=== PATIENT | female | born 1945 | race Caucasian/White ===

== ENCOUNTER 2022-05-03 18:21 | Inpatient (IN) | payer OTHER, SELFPAY ==
[2022-05-02] VITALS (36 sets, daily range): BP systolic 105–199; BP diastolic 61–112; PULSE 61–75; RESP 12–22; TEMP 35.9–36.7; O2SAT 90–100; BMI 29.6; BMI 29.3
[2022-05-02] MEDS: ETHYL CHLORIDE 116 ML SPRAY 1 APPLIC TOPICAL (10:30)
[2022-05-02] MEDS: LACTATED RINGERS 1000 ML 1,000 ML 100 ML IV ×2 (10:30→12:46)
[2022-05-02] MEDS: ACETAMINOPHEN 500 MG TABLET 1000 MG PO ×3 (10:45→23:14)
[2022-05-02] MEDS: CELECOXIB 200 MG CAPSULE PO (10:45)
[2022-05-02] MEDS: OXYCODONE (CR) 10 MG TAB.ER.12H PO (10:45)
[2022-05-02] MEDS: fentaNYL 100 MCG/2 ML inj IVP (11:04)
[2022-05-02] MEDS: MIDAZOLAM HCL 1 MG/ML inj IVP (11:04)
--- NOTE | 2022-05-02 11:08 | P.NB_ITS ---
Nerve Block Nerve Block Time Seen by Provider: 11:00 Date Seen: 05/02/22 Type of block requested by surgeon for post-operative analgesia: interscalene Side: right Time out performed: Yes Verification of patient name: Yes Verification of date of : Yes Site marking: site marked Name of person performing procedure: Aniket Continuous monitoring Was continuous monitoring of O2 sat, B/P, electronic device monitor, recorded every 15 minutes?: Yes Procedure Checklist: sterile prep, needles and gloves Ultrasound guided. Images saved: Yes Medications given in 5ml increments after negative aspiration: Ropivicaine %: 0.5 mL: 20 Needle gauge: 22 Decadron (mg): 10 Precedex (mcg): 25 Patient tolerated procedure well: Yes
--- NOTE | 2022-05-02 11:11 | P.NB_ITS ---
Nerve Block Nerve Block Type of block requested by surgeon for post-operative analgesia: geniculars Time out performed: Yes Verification of patient name: Yes Verification of date of : Yes Site marking: site marked Name of person performing procedure: Aniket Continuous monitoring Was continuous monitoring of O2 sat, B/P, media monitor, recorded every 15 minutes?: Yes Procedure Checklist: sterile prep, needles and gloves Ultrasound guided. Images saved: Yes Medications given in 5ml increments after negative aspiration: Ropivicaine %: 0.5 mL: 9 Needle gauge: 25 Patient tolerated procedure well: Yes Additional comments: Needle noted adjacent to nerve
--- NOTE | 2022-05-02 11:22 | PM.ANBPRC ---
[facility] Medical History (Updated 05/01/22 @ 10:03 by Kaelyn Bush RN) Chronic neck pain Gastro-esophageal reflux disease without esophagitis History of colon polyps Hypertension Insomnia Other hyperlipidemia Recurrent cold sores Scoliosis Social History Smoking Status: Former smoker How often do you have a drink containing alcohol: monthly or less How many standard drinks containing alcohol do you have on a typical day: 1 or 2 How often do you have six or more drinks on one occasion: Never AUDIT-C Alcohol total score: 1 Caffeine: Yes (OFFEE 1/D) Meds Home Medications and Allergies Home Medications Medication Instructions Recorded Confirmed Type alendronate 70 mg tablet 70 mg PO QWEEK 04/25/22 05/02/22 History calcium carbonate 500 mg-vitamin 1 tab PO DAILY 04/25/22 05/02/22 History D3 3.125 mcg (125 unit) tablet famotidine 20 mg tablet 20 mg PO DAILY 04/25/22 05/02/22 History ibuprofen 200 mg tablet 400 mg PO Q4-6H PRN 04/25/22 05/02/22 History metoprolol succinate 25 mg 25 mg PO DAILY 04/25/22 05/02/22 History tablet,extended release 24 hr rosuvastatin 10 mg tablet 10 mg PO HS 04/25/22 05/02/22 History sennosides 8.6 mg-docusate sodium 1 tab-cap PO HS 04/25/22 05/02/22 History 50 mg tablet (Senna-S) tramadol 50 mg tablet 50 mg PO Q6H PRN 04/25/22 05/02/22 History trazodone 50 mg tablet 50 mg PO HS 04/25/22 05/02/22 History Allergies Allergy/AdvReac Type Severity Reaction Status Date / Time No Known Allergies Allergy Unverified 05/02/22 09:40 Results Vital Signs Vital Signs: Last Vital Signs Temp 97.9 F 05/02/22 10:22 Pulse 74 05/02/22 10:22 Resp 16 05/02/22 10:22 BP 151/95 H 05/02/22 10:22 Pulse Ox 99 05/02/22 10:22 Weight: 71.7 kg Height: 156.21 cm Anesthesia Procedures Epidural Insertion Patient Location: OB Reason for Block: primary anesthetic Patient Position: sitting Performed By: Abraham Marcial Preanesthetic Checklist: IV checked, risks and benefits discussed, surgical consent, monitors and equipment checked, pre-op evaluation, timeout performed and anesthesia consent Prep: chlorhexidine gluconate Monitoring: blood pressure monitoring, cardiac care nurse, continuous pulse oximetry and heart rate Approach: midline Vertebral Space: lumbar (1-5) Epidural Technique: VICKY saline Needle Type: Tuohy needle Injection Technique: continuous shot (catheter) Needle gauge: 17 Needle Length (cm): 10 cm Needle Insertion Depth (cm): 5 Catheter Gauge: 19 Catheter Type: multi-orifice Catheter at skin depth (cm): 11 Test Dose Result: negative and lidocaine 1.5% with epinephrine 1 to 200,000
--- NOTE | 2022-05-02 11:26 | SUR.PREOP ---
TIME?OUT:?1102 PT/ABIGAIL CARBAJAL?VERIFICATION?OF?SURGICAL?SITE RIGHT SHOUDER,?PROCEDURE RIGHT SHOULDER NERVE BLOCK,?AND?CONSENT OBTAINED?PRIOR?TO?INVASIVE?PROCEDURE.
[2022-05-02] MEDS: CEFAZOLIN 2 GM INJ IVP (11:40)
--- NOTE | 2022-05-02 13:28 | PM.ORPRC ---
Procedure Note Procedure: SURGEON: Erick Donnelly MD DIRECTOR OF ROOMS: Francesca Mariano PA-C, RONA Hinson PREOPERATIVE DIAGNOSIS: End-stage Right shoulder osteoarthritis POSTOPERATIVE DIAGNOSIS: End-stage Right shoulder osteoarthritis NAME OF OPERATION: Right upper extremity total shoulder arthroplasty ANESTHESIA: General endotracheal ESTIMATED BLOOD LOSS: 50 mL COMPLICATIONS: None SPECIMENS: None DRAINS: None PREOPERATIVE ANTIBIOTICS: Ancef 1 grams IMPLANTS: 1. Tornier S40 glenoid 2. 5B stem 3. 45 x 15 low eccentric head INDICATIONS: The patient is a 76-year-old female with a longstanding history of severe, unrelenting right shoulder pain secondary to end-stage osteoarthritis. Despite appropriate nonoperative management, including activity modification, anti-inflammatories, doui-knf-[id number] pain medication, physical therapy, and injections they continue to have pain and disability. Operative intervention was offered. The risks, benefits and expected outcomes were discussed in detail. These included but were not limited to: Infection, bleeding, injury to blood vessel or nerve, venous thromboembolism. All questions were answered to their satisfaction. Use of an assistant operations manager was necessary throughout the case for patient positioning and safety, soft tissue retraction, and closure. PROCEDURE: General anesthesia was administered. The patient was placed in the lazy beach chair position on the operating room table. The right upper extremity was prepped and draped in the usual sterile fashion. A standard deltopectoral incision was made. Subcutaneous dissection was taken with electrocautery to the deltopectoral interval. The cephalic vein was mobilized, lateral branches were cauterized. The vein was taken medially with the pectoralis. We bluntly entered the deltopectoral interval. We freed up the deltoid. The upper 1/3 of the insertion of the pectoralis was divided with cautery. The static retractor was placed. The clavipectoral fascia and CA ligament were divided. The circumflex vessels were controlled with electrocautery. The biceps was dissected out of the bicipital groove, was tagged with a #2 FiberWire suture and divided proximally. Two fiberWire sutures were placed in the subscapularis. The subscap was subperiosteally elevated off of the lesser tuberosity. The humeral head was delivered into the wound. The intramedullary humeral cutting guide was placed. We made the cut at the anatomic neck, in 20?of retroversion. Humeral sounds were used to assess the diameter of the canal. The broach was placed and had good rotational stability. The calcar reamer was used and the protective base plate cover was placed. Attention was then turned to the glenoid. Hohmann retractors were placed posteriorly. The labrum and biceps stump were sharply debrided. The origin of the inferior glenohumeral ligaments were subperiosteally released off of the glenoid. The drill guide was placed. The guide pin was placed. The reamer was used. The central drill was used. The trial glenoid was placed and was an excellent fit. Bone was irrigated with pulse lavaged and thoroughly dried. Cement was placed with a syringe. The S40 glenoid was impacted onto the glenoid. Attention then returned to the humerus. We placed a low eccentric head. We reduced the shoulder and took it through a range of motion. It was found to be stable with appropriate soft tissue tension. Trial humeral components were removed. We placed #2 FiberWire sutures in the lesser tuberosity for subsequent subscap repair. We assembled the humeral component on the back table. We placed it in the center of our subscapularis repair sutures and tapped it down to our humeral cut. This had excellent purchase. The shoulder was reduced and again was found to be stable with appropriate soft tissue tension. A soft tissue biceps tenodesis was done. We repaired the subscapularis to the lesser tuberosity with our previously placed FiberWire sutures. We did a 3 min dilute Betadine solution soak. We irrigated the wound with 3 L of normal saline via pulse lavage. The deltopectoral interval was loosely reapproximated with an 0 Vicryl in an interrupted [id number] fashion. Subcutaneous tissues were closed with the 2-0 Vicryl and a running 3-0 Monocryl suture. The skin was sealed with glue. A dry dressing and sling were applied. Sponge and needle counts were correct x2. The patient tolerated the procedure well, there were no apparent complications. They were awakened and extubated in the operating room, taken to the postanesthesia care unit in satisfactory condition. PLAN: The patient will be mobilized with physical therapy. The sling will be used for 6 weeks postoperatively. Active range of motion in forward flexion and abduction as tolerates. No external rotation greater than 0? for 6 weeks postoperatively. They will be discharged to home once medically appropriate.
--- NOTE | 2022-05-02 14:00 | W.ANESCHARGE ---
Anesthesia Charges Start Date/Time Anesthesia Start Date: 05/02/22 Anesthesia Start Time: 11:31 Stop Date/Time Anesthesia Stop Date: 05/02/22 Anesthesia Stop Time: 13:57 Summary Emergency: No Extremes of Age: Over 71-CPT 73724
--- NOTE | 2022-05-02 14:25 | W.ANESCHARGE ---
Anesthesia Charges Start Date/Time Anesthesia Start Date: 05/02/22 Anesthesia Start Time: 11:31 Stop Date/Time Anesthesia Stop Date: 05/02/22 Anesthesia Stop Time: 13:57 Summary Emergency: No Extremes of Age: Over 71-CPT 38120
--- NOTE | 2022-05-02 15:49 | SUR.PHASEI ---
TO PACU PER BED. VSS. PATIENT ABLE TO TOLERATE ICE CHIPS WITHOUT NAUSEA. DRESSING TO RIGHT SHOULDER IS DRY AND SECURE. CRYOCUFF ICE IS ON. UPON DISCHARGE FROM PACU, PATIENT HAS A COUPLE FINGERS THAT ARE STARTING TO TINGLE, OTHERWISE THE REST FEEL NUMB. CMS INTACT. PATIENT HAS MET DISCHARGE CRITERIA FROM PHASE I RECOVERY ND IS TRANSFERRED TO PHASE II PER CART. HANDOFF GIVEN TO [facility] NURSE
--- NOTE | 2022-05-02 17:13 | CRLHL7_ITS ---
For Patients: As a result of the Century Cures Act, medical imaging exams and procedure reports are released immediately into your electronic medical record. You may view this report before your referring provider. If you have questions, please contact your health care provider. 2 view portable right shoulder. INDICATION: Right shoulder arthroplasty IMPRESSION: Overlying material obscures fine bone detail. Right shoulder arthroplasty components are intact. Alignments anatomic. Additional linear area of platelike atelectasis in the visible portion of the right lung base. Dictated by Casper Bates MD @ 05/05/2022 10:03:44 PM (Electronically Signed)
[2022-05-02] MEDS: CEFAZOLIN 1 GM in 0.9 % SODIUM CHLORIDE Mini-bag 100 ML IVPB (17:45)
--- NOTE | 2022-05-02 19:17 | P.IMCN_ITS ---
Date of Consult Requesting Physician: Orthopedics Primary Care Provider: Evelia Payne MD Consult Narrative Reason for consult: Narrative: HOSPITALIST CONSULT Hospital Day # 1 Postop day 0, total right shoulder arthroplasty The hospital medicine team was asked by team to manage the patient's hypertension Her H&P completed by Dr. Evelia Payne on 04/09 22 was reviewed. REVIEW OF SYSTEMS: 12-point ROS completed with patient and negative unless otherwise stated in HPI or below. PHYSICAL EXAM: CODE STATUS: Full code CONSTITUTIONAL: Conversive, good historian. A/O. Knows setting and context. VITAL SIGNS: see record. HEENT: Normocephalic, atraumatic. PERRL, EOMI, conjunctivae pink, no scleral icterus. Ears and nose externally normal. Pharynx normal. NECK: No JVD. No carotid bruit, no thyromegaly, no adenopathy. CHEST: Clear to auscultation bilaterally MUSCULOSKELETAL: Right shoulder surgical dressing is clean, dry, intact. NEURO: Cranial nerves intact. Normal affect. No gross deficits. Speech intelligible. SKIN: No rashes, petechiae, concerning changes PSYCHIATRIC: Euthymic. INVESTIGATIONS: EMR Reviewed DISPOSITION: DVT: Ambulation GI: PO intake PFSH [facility] Medical History (Updated 05/02/22 @ 19:52 by Jaja Degroot MD) Chronic neck pain Gastro-esophageal reflux disease without esophagitis History of colon polyps Hypertension Insomnia Other hyperlipidemia Recurrent cold sores Scoliosis Surgical History (Updated 05/02/22 @ 19:52 by Jaja Degroot MD) Status post reverse total arthroplasty of right shoulder Social History Smoking Status: Former smoker How often do you have a drink containing alcohol: monthly or less How many standard drinks containing alcohol do you have on a typical day: 1 or 2 How often do you have six or more drinks on one occasion: Never AUDIT-C Alcohol total score: 1 Caffeine: Yes (OFFEE 1/D) Meds Home Medications and Allergies Home Medications Medication Instructions Recorded Confirmed Type alendronate 70 mg tablet 70 mg PO QWEEK 04/25/22 05/02/22 History calcium carbonate 500 mg-vitamin 1 tab PO DAILY 04/25/22 05/02/22 History D3 3.125 mcg (125 unit) tablet famotidine 20 mg tablet 20 mg PO DAILY 04/25/22 05/02/22 History ibuprofen 200 mg tablet 400 mg PO Q4-6H PRN 04/25/22 05/02/22 History metoprolol succinate 25 mg 25 mg PO DAILY 04/25/22 05/02/22 History tablet,extended release 24 hr rosuvastatin 10 mg tablet 10 mg PO HS 04/25/22 05/02/22 History sennosides 8.6 mg-docusate sodium 1 tab-cap PO HS 04/25/22 05/02/22 History 50 mg tablet (Senna-S) tramadol 50 mg tablet 50 mg PO Q6H PRN 04/25/22 05/02/22 History trazodone 50 mg tablet 50 mg PO HS 04/25/22 05/02/22 History Allergies Allergy/AdvReac Type Severity Reaction Status Date / Time No Known Allergies Allergy Unverified 05/02/22 09:40 Exam Const: Vital Signs, click to edit/add: Vital Signs - 24 hr 05/02/22 10:22 05/02/22 11:05 05/02/22 11:10 Temperature 97.9 F Pulse Rate 74 74 65 Pulse Rate [Left P ulse Oximeter] Respiratory Rate 16 16 14 Blood Pressure 151/95 H 155/100 H 199/90 H Blood Pressure [Ri ght Arm] Pulse Oximetry 99 100 98 05/02/22 11:22 05/02/22 13:55 05/02/22 14:00 Temperature 97.2 F L Pulse Rate 75 69 71 Pulse Rate [Left P ulse Oximeter] Respiratory Rate 14 12 13 Blood Pressure 125/75 105/67 128/62 Blood Pressure [Ri ght Arm] Pulse Oximetry 99 90 94 05/02/22 14:05 05/02/22 14:10 05/02/22 14:15 Temperature Pulse Rate 67 68 68 Pulse Rate [Left P ulse Oximeter] Respiratory Rate 16 16 16 Blood Pressure 132/62 140/61 H 137/70 Blood Pressure [Ri ght Arm] Pulse Oximetry 97 98 99 05/02/22 14:20 05/02/22 14:25 05/02/22 14:30 Temperature Pulse Rate 65 66 65 Pulse Rate [Left P ulse Oximeter] Respiratory Rate 14 16 16 Blood Pressure 138/73 137/75 140/69 H Blood Pressure [Ri ght Arm] Pulse Oximetry 98 98 99 05/02/22 14:35 05/02/22 14:40 05/02/22 14:45 Temperature Pulse Rate 63 66 62 Pulse Rate [Left P ulse Oximeter] Respiratory Rate 14 14 16 Blood Pressure 144/73 H 145/76 H 146/72 H Blood Pressure [Ri ght Arm] Pulse Oximetry 99 99 98 05/02/22 14:50 05/02/22 14:55 05/02/22 15:00 Temperature 97 F L Pulse Rate 65 63 61 Pulse Rate [Left P ulse Oximeter] 67 Respiratory Rate 16 16 16 Blood Pressure 141/63 H 148/76 H Blood Pressure [Ri ght Arm] 157/80 H Pulse Oximetry 99 99 05/02/22 15:10 05/02/22 15:20 05/02/22 15:36 Temperature 97.2 F L Pulse Rate 65 61 63 Pulse Rate [Left P ulse Oximeter] Respiratory Rate 16 16 16 Blood Pressure 125/72 167/79 H 147/80 H Blood Pressure [Ri ght Arm] Pulse Oximetry 94 94 94 05/02/22 16:00 05/02/22 16:15 05/02/22 16:30 Temperature 96.6 F L 96.8 F L Pulse Rate Pulse Rate [Left P ulse Oximeter] 62 64 65 Respiratory Rate 20 20 22 Blood Pressure Blood Pressure [Ri ght Arm] 153/79 H 165/79 H 147/81 H Pulse Oximetry 95 95 97 05/02/22 16:45 05/02/22 17:15 05/02/22 17:30 Temperature 97.2 F L Pulse Rate Pulse Rate [Left P ulse Oximeter] 62 61 68 Respiratory Rate 20 18 18 Blood Pressure Blood Pressure [Ri ght Arm] 159/90 H 161/83 H 176/112 H Pulse Oximetry 96 94 95 05/02/22 17:45 05/02/22 18:00 05/02/22 18:15 Temperature 98 F Pulse Rate Pulse Rate [Left P ulse Oximeter] 62 67 65 Respiratory Rate 16 18 Blood Pressure Blood Pressure [Ri ght Arm] 152/74 H 146/108 H 157/94 H Pulse Oximetry 94 95 05/02/22 18:55 Temperature 97.4 F L Pulse Rate Pulse Rate [Left P ulse Oximeter] Respiratory Rate Blood Pressure Blood Pressure [Ri ght Arm] Pulse Oximetry Assessment and Plan Assessment and plan (1) Status post reverse total arthroplasty of right shoulder: Status: Acute (2) Hypertension: Status: Acute (3) Gastro-esophageal reflux disease without esophagitis: Status: Acute Plan I suspect she will have a benign and uncomplicated postoperative course. Postop VTE prophylaxis can be a simple is ambulation. Her blood pressure is 157/94. A restart her Toprol tonight.
--- NOTE | 2022-05-02 19:33 | PC.NURSE ---
Pt returned from OR 1545, see charting for freq. VS. Updated Dr. Degroot on increased B/p. Tylenol given as scheduled, denies pain. Given dose 1:3 Ancef IV. Sling and drsg. intact to Right shoulder.
[2022-05-02] MEDS: METOPROLOL SUCCINATE (XL) 25 MG TAB PO (21:51)
[2022-05-02] MEDS: SENNOSIDES/DOCUSATE TABLET 1 TAB PO (21:52)
[2022-05-02] MEDS: ROSUVASTATIN CALCIUM 10 MG TABLET PO (21:53)
[2022-05-02] MEDS: TRAZODONE HCL 50 MG TABLET PO (21:53)
[2022-05-03] VITALS (8 sets, daily range): BP systolic 121–152; BP diastolic 65–84; PULSE 66–86; RESP 16–20; TEMP 36.4–36.7; O2SAT 90–98
[2022-05-03] MEDS: CEFAZOLIN 1 GM in 0.9 % SODIUM CHLORIDE Mini-bag 100 ML IVPB ×2 (01:56→10:31)
[2022-05-03] MEDS: ACETAMINOPHEN 500 MG TABLET 1000 MG PO ×3 (05:18→22:46)
--- NOTE | 2022-05-03 06:41 | PC.NURSE ---
[id number]: Patient pleasant and cooperative. Denies pain. CMS intact. Dressing to R. shoulder C/D/I with sling in place. Crycocuff to R. shoulder. Eating and voiding. Independent in room.
[2022-05-03] MEDS: SENNOSIDES 1 TAB TABLET 2 TAB PO ×2 (09:02→21:22)
[2022-05-03] MEDS: FAMOTIDINE 20 MG TABLET PO ×2 (09:02→15:26)
[2022-05-03] MEDS: METOPROLOL SUCCINATE (XL) 25 MG TAB PO (09:03)
--- NOTE | 2022-05-03 09:16 | PM.ORPN ---
Subjective Subjective Time Seen by Provider: 07:30 Date Seen: 05/03/22 Principal diagnosis: rt shoulder replacement Ortho Exam Narrative Exam Narrative: Pt is comfortable this morning. Block is working well. She is planning to discharge with her today. Const Vital Signs, click to edit/add: Vital Signs - 24 hr 05/02/22 10:22 05/02/22 11:05 05/02/22 11:10 Temperature 97.9 F Pulse Rate 74 74 65 Pulse Rate [Left Pulse Oximeter] Respiratory Rate 16 16 14 Blood Pressure 151/95 H 155/100 H 199/90 H Blood Pressure [Left Arm] Blood Pressure [Right Arm] Pulse Oximetry 99 100 98 05/02/22 11:22 05/02/22 13:55 05/02/22 14:00 Temperature 97.2 F L Pulse Rate 75 69 71 Pulse Rate [Left Pulse Oximeter] Respiratory Rate 14 12 13 Blood Pressure 125/75 105/67 128/62 Blood Pressure [Left Arm] Blood Pressure [Right Arm] Pulse Oximetry 99 90 94 05/02/22 14:05 05/02/22 14:10 05/02/22 14:15 Temperature Pulse Rate 67 68 68 Pulse Rate [Left Pulse Oximeter] Respiratory Rate 16 16 16 Blood Pressure 132/62 140/61 H 137/70 Blood Pressure [Left Arm] Blood Pressure [Right Arm] Pulse Oximetry 97 98 99 05/02/22 14:20 05/02/22 14:25 05/02/22 14:30 Temperature Pulse Rate 65 66 65 Pulse Rate [Left Pulse Oximeter] Respiratory Rate 14 16 16 Blood Pressure 138/73 137/75 140/69 H Blood Pressure [Left Arm] Blood Pressure [Right Arm] Pulse Oximetry 98 98 99 05/02/22 14:35 05/02/22 14:40 05/02/22 14:45 Temperature Pulse Rate 63 66 62 Pulse Rate [Left Pulse Oximeter] Respiratory Rate 14 14 16 Blood Pressure 144/73 H 145/76 H 146/72 H Blood Pressure [Left Arm] Blood Pressure [Right Arm] Pulse Oximetry 99 99 98 05/02/22 14:50 05/02/22 14:55 05/02/22 15:00 Temperature 97 F L Pulse Rate 65 63 61 Pulse Rate [Left Pulse Oximeter] 67 Respiratory Rate 16 16 16 Blood Pressure 141/63 H 148/76 H Blood Pressure [Left Arm] Blood Pressure [Right Arm] 157/80 H Pulse Oximetry 99 99 05/02/22 15:10 05/02/22 15:20 05/02/22 15:36 Temperature 97.2 F L Pulse Rate 65 61 63 Pulse Rate [Left Pulse Oximeter] Respiratory Rate 16 16 16 Blood Pressure 125/72 167/79 H 147/80 H Blood Pressure [Left Arm] Blood Pressure [Right Arm] Pulse Oximetry 94 94 94 05/02/22 16:00 05/02/22 16:15 05/02/22 16:30 Temperature 96.6 F L 96.8 F L Pulse Rate Pulse Rate [Left Pulse Oximeter] 62 64 65 Respiratory Rate 20 20 22 Blood Pressure Blood Pressure [Left Arm] Blood Pressure [Right Arm] 153/79 H 165/79 H 147/81 H Pulse Oximetry 95 95 97 05/02/22 16:45 05/02/22 17:15 05/02/22 17:30 Temperature 97.2 F L Pulse Rate Pulse Rate [Left Pulse Oximeter] 62 61 68 Respiratory Rate 20 18 18 Blood Pressure Blood Pressure [Left Arm] Blood Pressure [Right Arm] 159/90 H 161/83 H 176/112 H Pulse Oximetry 96 94 95 05/02/22 17:45 05/02/22 18:00 05/02/22 18:15 Temperature 98 F Pulse Rate Pulse Rate [Left Pulse Oximeter] 62 67 65 Respiratory Rate 16 18 Blood Pressure Blood Pressure [Left Arm] Blood Pressure [Right Arm] 152/74 H 146/108 H 157/94 H Pulse Oximetry 94 95 05/02/22 18:55 05/02/22 19:00 05/02/22 20:00 Temperature 97.4 F L 96.9 F L 96.9 F L Pulse Rate Pulse Rate [Left Pulse Oximeter] 71 72 Respiratory Rate 16 16 Blood Pressure Blood Pressure [Left Arm] Blood Pressure [Right Arm] 155/81 H 153/83 H Pulse Oximetry 94 92 05/02/22 21:00 05/02/22 22:00 05/02/22 23:00 Temperature 97.5 F L 98.1 F 98.1 F Pulse Rate Pulse Rate [Left Pulse Oximeter] 68 72 72 Respiratory Rate 16 18 18 Blood Pressure Blood Pressure [Left Arm] Blood Pressure [Right Arm] 138/73 149/66 H 149/66 H Pulse Oximetry 93 94 94 05/03/22 02:51 05/03/22 07:00 Temperature 97.5 F L 97.8 F Pulse Rate Pulse Rate [Left Pulse Oximeter] 66 69 Respiratory Rate 16 20 Blood Pressure Blood Pressure [Left Arm] 121/65 Blood Pressure [Right Arm] 139/81 Pulse Oximetry 90 94 Documenting provider has reviewed patient's vital signs: yes Common normals: no apparent distress, average body habitus, oriented x3, no limitations, healthy appearing, alert and well nourished General appearance: cooperative, comfortable, well kempt and well developed HENMT Common normals: Yes hearing grossly normal bilaterally Resp Effort & inspection: able to speak in complete sentences and symmetric chest movement Neuro Common normals: oriented x3 Sensorium/orientation: alert Sensory exam: extremities (rt upper extremity sensory decreased) Other: motor decreased rt upper extremity. Block is working well. Psych Common normals: thought process normal and speech normal Appearance: grossly normal and well kempt Attitude: calm and engaged Speech: normal speech Thought process: normal thought process Memory/cognition: memory grossly intact Skin Common normals: Yes no rashes or lesions noted Narrative: dressing is intact. ecchymosis present rt shoulder area. mild edema General skin exam: Yes no rashes or lesions noted Assessment and Plan Assessment and plan (1) Hypertension: Status: Acute (2) Gastro-esophageal reflux disease without esophagitis: Status: Acute (3) Status post replacement of right shoulder joint: Problem details: Plan for discharge is today to home if they meet discharge criteria. Patient will wear the sling for 6 weeks post surgery. She can take it off for comfort and for exercises. Activity: no external rotation of the left shoulder past 0? x 6 weeks. Forward flexion and abduction of the left shoulder is allowed as tolerated. They will work on range of motion of the elbow, wrist, fingers once the block has wore off on the operative extremity. Patient will begin occupational therapy for the operative shoulder next week. For discharge, oxycodone and Tylenol for pain. The patient is tolerating these well. Do not drive while on narcotic pain medication. Drive only when safe to do so, when they have normal use/function of the upper extremity. Patient will minimize and discontinue the narcotic as soon as possible. Remove dressing in 1 week. Dressing is waterproof. May shower. Surgical glue covers the wound. Do not scrub the wound. Expect swelling and bruising about the shoulder and upper extremity. Use of ice/active ice is without restriction. Patient will notify Orthopedics with any questions or concerns. Return to Orthopedic clinic next week for a wound check Return to clinic in [address] Donnelly. Status: Acute
--- NOTE | 2022-05-03 09:21 | P.DS_ITS ---
DS: Providers Provider Time Seen by Provider: :20 Date Seen: 05/03/22 Primary care physician: Evelia Payne MD Consults: 05/02/22 13:23 Consult to Occupational Therapy [CONS] Routine Comment: Reason(s) for OT Consult:: Evaluate and Treat Any Restrictions?:: See Comment Consult to Physical Therapy [CONS] Routine Comment: Reason(s) for PT Consult:: Evaluate and Treat Any Restrictions?:: See Comment Comment: no ER > 0 Degrees AROM FF/AB Consult to Environmental Protection Economist [CONS] Routine Comment: Reason for Consult:: Discharge Planning Needs Attending Physician on discharge: Erick Donnelly MD DS: Diagnosis Discharge Diagnosis (1) Status post reverse total arthroplasty of right shoulder: Status: Acute DS: Summary Hospital Course Hospital Course: 76-year-old female admitted to the hospital for right total shoulder arthroplasty. Procedures performed by Dr. Donnelly without complications. Postoperatively she has been doing well. Her block is still in effect. Pain is well controlled. She has no other concerns today. Time Spent with Patient Time attestation: Total time spent providing and/or coordinating discharge services: Time spent: Less than 30 minutes Exam Narrative: Exam Narrative: She is alert and appears in no distress. Breathing is unlabored. She is just regaining sensation and motion in the fingers of her right hand. Intact pulses and good capillary refill. Const: Vital Signs, click to edit/add: Vital Signs - 24 hr 05/02/22 10:22 05/02/22 11:05 05/02/22 11:10 Temperature 97.9 F Pulse Rate 74 74 65 Pulse Rate [Left P ulse Oximeter] Respiratory Rate 16 16 14 Blood Pressure 151/95 H 155/100 H 199/90 H Blood Pressure [Le ft Arm] Blood Pressure [Ri ght Arm] Pulse Oximetry 99 100 98 05/02/22 11:22 05/02/22 13:55 05/02/22 14:00 Temperature 97.2 F L Pulse Rate 75 69 71 Pulse Rate [Left P ulse Oximeter] Respiratory Rate 14 12 13 Blood Pressure 125/75 105/67 128/62 Blood Pressure [Le ft Arm] Blood Pressure [Ri ght Arm] Pulse Oximetry 99 90 94 05/02/22 14:05 05/02/22 14:10 05/02/22 14:15 Temperature Pulse Rate 67 68 68 Pulse Rate [Left P ulse Oximeter] Respiratory Rate 16 16 16 Blood Pressure 132/62 140/61 H 137/70 Blood Pressure [Le ft Arm] Blood Pressure [Ri ght Arm] Pulse Oximetry 97 98 99 05/02/22 14:20 05/02/22 14:25 05/02/22 14:30 Temperature Pulse Rate 65 66 65 Pulse Rate [Left P ulse Oximeter] Respiratory Rate 14 16 16 Blood Pressure 138/73 137/75 140/69 H Blood Pressure [Le ft Arm] Blood Pressure [Ri ght Arm] Pulse Oximetry 98 98 99 05/02/22 14:35 05/02/22 14:40 05/02/22 14:45 Temperature Pulse Rate 63 66 62 Pulse Rate [Left P ulse Oximeter] Respiratory Rate 14 14 16 Blood Pressure 144/73 H 145/76 H 146/72 H Blood Pressure [Le ft Arm] Blood Pressure [Ri ght Arm] Pulse Oximetry 99 99 98 05/02/22 14:50 05/02/22 14:55 05/02/22 15:00 Temperature 97 F L Pulse Rate 65 63 61 Pulse Rate [Left P ulse Oximeter] 67 Respiratory Rate 16 16 16 Blood Pressure 141/63 H 148/76 H Blood Pressure [Le ft Arm] Blood Pressure [Ri ght Arm] 157/80 H Pulse Oximetry 99 99 05/02/22 15:10 05/02/22 15:20 05/02/22 15:36 Temperature 97.2 F L Pulse Rate 65 61 63 Pulse Rate [Left P ulse Oximeter] Respiratory Rate 16 16 16 Blood Pressure 125/72 167/79 H 147/80 H Blood Pressure [Le ft Arm] Blood Pressure [Ri ght Arm] Pulse Oximetry 94 94 94 05/02/22 16:00 05/02/22 16:15 05/02/22 16:30 Temperature 96.6 F L 96.8 F L Pulse Rate Pulse Rate [Left P ulse Oximeter] 62 64 65 Respiratory Rate 20 20 22 Blood Pressure Blood Pressure [Le ft Arm] Blood Pressure [Ri ght Arm] 153/79 H 165/79 H 147/81 H Pulse Oximetry 95 95 97 05/02/22 16:45 05/02/22 17:15 05/02/22 17:30 Temperature 97.2 F L Pulse Rate Pulse Rate [Left P ulse Oximeter] 62 61 68 Respiratory Rate 20 18 18 Blood Pressure Blood Pressure [Le ft Arm] Blood Pressure [Ri ght Arm] 159/90 H 161/83 H 176/112 H Pulse Oximetry 96 94 95 05/02/22 17:45 05/02/22 18:00 05/02/22 18:15 Temperature 98 F Pulse Rate Pulse Rate [Left P ulse Oximeter] 62 67 65 Respiratory Rate 16 18 Blood Pressure Blood Pressure [Le ft Arm] Blood Pressure [Ri ght Arm] 152/74 H 146/108 H 157/94 H Pulse Oximetry 94 95 05/02/22 18:55 05/02/22 19:00 05/02/22 20:00 Temperature 97.4 F L 96.9 F L 96.9 F L Pulse Rate Pulse Rate [Left P ulse Oximeter] 71 72 Respiratory Rate 16 16 Blood Pressure Blood Pressure [Le ft Arm] Blood Pressure [Ri ght Arm] 155/81 H 153/83 H Pulse Oximetry 94 92 05/02/22 21:00 05/02/22 22:00 05/02/22 23:00 Temperature 97.5 F L 98.1 F 98.1 F Pulse Rate Pulse Rate [Left P ulse Oximeter] 68 72 72 Respiratory Rate 16 18 18 Blood Pressure Blood Pressure [Le ft Arm] Blood Pressure [Ri ght Arm] 138/73 149/66 H 149/66 H Pulse Oximetry 93 94 94 05/03/22 02:51 05/03/22 07:00 Temperature 97.5 F L 97.8 F Pulse Rate Pulse Rate [Left P ulse Oximeter] 66 69 Respiratory Rate 16 20 Blood Pressure Blood Pressure [Le ft Arm] 121/65 Blood Pressure [Ri ght Arm] 139/81 Pulse Oximetry 90 94 Documenting provider has reviewed patient's vital signs: yes Discharge Plan Discharge Disposition: Home, Self-Care Discharging Surgeon: Erick Donnelly Follow-Up Appointment: 1 week Prescriptions: New acetaminophen 500 mg Tablet 500 - 1,000 mg PO Q6H Qty: 100 0RF oxycodone 5 mg Tablet 2.5 - 5 mg PO Q4-6H PRN (Reason: Pain) Qty: 42 0RF sennosides [Senna Lax] 8.6 mg Tablet 2 tab PO BID PRN (Reason: prn) Qty: 100 0RF Continued calcium carbonate-vitamin D3 500 mg-3.125 mcg (125 unit) tablet 1 tab PO DAILY 0RF ibuprofen 200 mg tablet 400 mg PO Q4-6H PRN0RF tramadol 50 mg tablet 50 mg PO Q6H PRN0RF alendronate 70 mg tablet 70 mg PO QWEEK 0RF Label Comments: pt takes on Mondays rosuvastatin 10 mg tablet 10 mg PO HS 0RF metoprolol succinate 25 mg tablet extended release 24 hr 25 mg PO DAILY 0RF famotidine 20 mg tablet 20 mg PO DAILY 0RF trazodone 50 mg tablet 50 mg PO HS 0RF sennosides-docusate sodium [Senna-S] 8.6-50 mg tablet 1 tab-cap PO HS 0RF Activity Detail: wear sling for 6 weeks post surgery. Active range of motion of the right elbow, wrist, fingers daily. Forward flexion and abduction Of right shoulder as tolerates. No external rotation of Right shoulder greater than 0?. Discharge Diet: Regular Additional Instructions: leave dressing on. Dressing is waterproof. May shower. Surgical glue covers the wound. Notify Orthopedics with any questions or concerns. Forms: Work/Release Restrictions Follow-up: Evelia Payne MD [Primary Care Provider] - Discharge Orders: Discharge Order (Routine); Ordered 05/03/22 Ordered By: Donte Olivia
--- NOTE | 2022-05-03 10:05 | CRLHL7_ITS ---
For Patients: As a result of the Century Cures Act, medical imaging exams and procedure reports are released immediately into your electronic medical record. You may view this report before your referring provider. If you have questions, please contact your health care provider. Indication: Postop dyspnea Technique: Portable chest Comparison: No comparison Findings: Low lung volumes. Right hemidiaphragm elevated. Basilar atelectasis. Cardiac silhouette unremarkable. No effusion or pneumothorax. Right humeral prosthesis is partially seen. Dictated by Gaby Howell MD @ 05/03/2022 11:04:58 AM (Electronically Signed)
[2022-05-03] MEDS: SODIUM CHLORIDE 0.9 % (FLUSH) 10 ML SYRINGE IVF (10:32)
--- NOTE | 2022-05-03 13:31 | PC.NURSE ---
Pt pain was controlled with Tylenol as scheduled, denies pain 0/10. Pt c/o SOB with PT and Ot. CXR done, and Dr. Mikala mcallister that pt has diagram affected by her nerve block, pt had this over 20yrs ago with other shoulder. After Ancef dose she c/o redness to her face and upper neck. Dr. Vazquez updated and added Ancef to allergy list. She will wait 30 min to see if symptoms resolve.
--- NOTE | 2022-05-03 15:15 | PM.EN ---
Chart Event Note Time Seen by Provider: 14:00 Date Seen: 05/03/22 Chart Event Note: I was informed by the patient's nurse that as she was preparing to discharge the patient the patient's face and neck and chest suddenly became quite red and flushed. Patient denies any discomfort of any kind in association with this. Denies a sense of any swelling, edema, tongue thickness or fullness, shortness of breath, wheezing, lightheadedness, chest heaviness, syncope or near syncope, nausea or vomiting, or abdominal pain. On exam she appears in no acute distress. Cheeks and neck and upper chest are indeed warm and red. She tells me this is new. Has no conjunctival injection. Buccal mucosa appears normal. Normal appearance of tongue. Palms of hands are without any lesions. Upper extremities, abdomen and back without any redness or warmth. Lungs are clear to auscultation. No wheezing, rhonchi, or rales. Heart tones with regular rhythm, normal S1-S2. Abdomen with active bowel sounds, soft, nontender. Independent in transfer, station, and gait. No tremor, asterixis, or ataxia. I waited 1 hour and reassessed her and her appearance was no worse or better. Her sense of well-being is no worse or better. I looked at old photos on her cell phone and indeed this appearance today is new. Patient may indeed have a hypersensitivity reaction to 1 of the medicine she received earlier today, possibly even the cefazolin. I have ordered 20 mg of famotidine orally right now. I have ordered 25 mg of diphenhydramine orally right now. I discussed with the patient her the reason for ordering these. Reassess patient in the next 1-2 hours. Consider discharge later today versus keeping her overnight and reassessing tomorrow for possible readiness for discharge.
[2022-05-03] MEDS: diphenhydrAMINE 25 MG CAPSULE PO (15:27)
--- NOTE | 2022-05-03 18:12 | PC.NURSE ---
Pt denies pain, up with sling and SBA. Passed OT and PT. Pt c/o redness to face and upper neck at 1300, updated Dr. Vazquez watched area until 1430 and gave Benadryl and Pepcid. No change in redness from [id number]. Added Ancef allergy, and provided a handout for her to update her providers records. Pt questions if there is lab work or a way to determine the cause of rash and c/o a short episode of having the chills, temp 98.3. Changed pt into gown and washed her face. Pt reassured with concerns and inform to report changes with swallowing, breathing, or increased coughing.
[2022-05-03] MEDS: HYDROmorphone 0.5 mg/0.5 ml inj IVP ×2 (19:02→21:05)
[2022-05-03] MEDS: ROSUVASTATIN CALCIUM 10 MG TABLET PO (21:21)
[2022-05-03] MEDS: SENNOSIDES/DOCUSATE TABLET 1 TAB PO (21:22)
[2022-05-03] MEDS: TRAZODONE HCL 50 MG TABLET PO (22:39)
[2022-05-03] MEDS: OXYCODONE 5 MG TABLET PO (22:40)
[2022-05-04 03:15] VITALS: BP 146/87; PULSE 70; RESP 20; TEMP 36.2; O2SAT 94
[2022-05-04] MEDS: OXYCODONE 5 MG TABLET PO ×3 (03:21→11:50)
[2022-05-04] MEDS: HYDROmorphone 0.5 mg/0.5 ml inj IVP (04:00)
--- NOTE | 2022-05-04 05:29 | PC.NURSE ---
Shift note: The pt has been reporting 0-4/10 to the right shoulder: pain has been well managed with Pain medication and polar ice. The dressing to the right shoulder has been C/D/I; Bruise noted to the site. Sling has been applied to the right arm. Right radial pulse is palpable ; capillary refill is less than 3 seconds. The pt stated that the short of breath she has had with exertion has been improved gradually. Spo2 has been in the 90s in RA. Redness to the face, neck and upper chest has improved also.
[2022-05-04 07:00] VITALS: BP 158/82; PULSE 66; PULSE 70; RESP 20; TEMP 36.6; O2SAT 98
[2022-05-04] MEDS: FAMOTIDINE 20 MG TABLET PO (08:22)
[2022-05-04] MEDS: METOPROLOL SUCCINATE (XL) 25 MG TAB PO (08:22)
[2022-05-04 11:00] VITALS: BP 158/82; PULSE 70; RESP 20; TEMP 36.6; O2SAT 98
--- NOTE | 2022-05-04 11:21 | P.ORPN_ITS ---
Subjective Subjective Time Seen by Provider: 08:05 Date Seen: 05/04/22 Principal diagnosis: rt shoulder replacement Interval history: Yesterday afternoon Leah developed a rash on her face that she states was be red. She therefore did not discharged home yesterday and will today, for this has resolved. The rash was located on her face only. This is said to be likely be from her antibiotic. Cefazolin has been added to her allergy list. Her right hemidiaphragm was affected by her block as well and she states she is breathing better today. Ortho Exam Narrative Exam Narrative: Alert and oriented x3. Patient is in no acute distress. Converses without labored breathing. Hearing is grossly intact. Ambulates with a normal gait. Examination of the right upper extremity shows the dressing is intact. Bruising over the upper right arm. 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 Sensation is returning in her hand. Mild soft tissue edema about the right shoulder and upper arm. Sling is in place. Const Vital Signs, click to edit/add: Vital Signs - 24 hr 05/03/22 12:04 05/03/22 15:00 05/03/22 16:00 Temperature Pulse Rate [Left Pulse Oximeter] 82 Respiratory Rate 20 Blood Pressure [Left Arm] Pulse Oximetry 96 91 05/03/22 19:45 05/03/22 23:00 05/04/22 03:15 Temperature 98.1 F 97.2 F L Pulse Rate [Left Pulse Oximeter] 78 86 70 Respiratory Rate 20 20 20 Blood Pressure [Left Arm] 146/75 H 146/87 H Pulse Oximetry 95 94 Documenting provider has reviewed patient's vital signs: yes Common normals: no apparent distress, average body habitus, oriented x3, healthy appearing, alert and well nourished General appearance: cooperative and comfortable HENAL Common normals: Yes hearing grossly normal bilaterally Resp Common normals: Yes normal respiratory effort Effort & inspection: able to speak in complete sentences and symmetric chest movement Cardio Peripheral pulses: radial pulses present and ulnar pulses present Extremity General: edema (Mild, ecchymosis present upper arm right.) Neuro Common normals: oriented x3 Sensorium/orientation: alert Psych Common normals: mental status grossly normal, thought process normal, cooperative, affect normal, speech normal and activity/motor behavior normal Appearance: grossly normal Attitude: calm and engaged Activity/motor behavior: appropriate eye contact Speech: normal speech Mood and affect: euthymic mood Thought process: normal thought process Thought content: normal thought content Memory/cognition: memory grossly intact Insight: insight good Judgement: judgment good Skin Narrative: Ecchymosis right upper arm Assessment and Plan Assessment and plan (1) Hypertension: Status: Acute (2) Gastro-esophageal reflux disease without esophagitis: Status: Acute (3) Status post replacement of right shoulder joint: Problem details: Plan for discharge is today to home if they meet discharge criteria. Patient will wear the sling for 6 weeks post surgery. She can take it off for comfort and for exercises. Activity: no external rotation of the left shoulder past 0? x 6 weeks. Forward flexion and abduction of the left shoulder is allowed as tolerated. They will work on range of motion of the elbow, wrist, fingers once the block has wore off on the operative extremity. Patient will begin occupational therapy for the operative shoulder next week. For discharge, oxycodone and Tylenol for pain. The patient is tolerating these well. Do not drive while on narcotic pain medication. Drive only when safe to do so, when they have normal use/function of the upper extremity. Patient will minimize and discontinue the narcotic as soon as possible. Remove dressing in 1 week. Dressing is waterproof. May shower. Surgical glue covers the wound. Do not scrub the wound. Expect swelling and bruising about the shoulder and upper extremity. Use of ice/active ice is without restriction. Patient will notify Orthopedics with any questions or concerns. Return to Orthopedic clinic next week for a wound check Return to clinic in [address] Donnelly. Status: Acute
[2022-05-04] MEDS: ACETAMINOPHEN 500 MG TABLET 1000 MG PO (11:50)
--- NOTE | 2022-05-04 12:13 | PC.NURSE ---
Pt pain controlled with Oxycodone, and Tylenol. She reports the prn meds improve the pain as the nerve block is wearing off. Pt reports she is not SOB, using IS and will use this at home. Pt denies nausea. She was d/c home with and verbalized understanding of instructions. Did not want new d/c instructions as the information remains the same. Aware of last dose of Tylenol and oxycodone at 1155.
--- NOTE | 2022-05-04 15:39 | PM.DS1 ---
DS: Providers Provider Time Seen by Provider: 10:00 Date Seen: 05/04/22 Date of admission: 05/03/22 18:21 Primary care physician: Evelia Payne MD Admitting Clinician: Donte Olivia MD Consults: 05/02/22 13:23 Consult to Occupational Therapy [CONS] Routine Comment: Reason(s) for OT Consult:: Evaluate and Treat Any Restrictions?:: See Comment Consult to Physical Therapy [CONS] Routine Comment: Reason(s) for PT Consult:: Evaluate and Treat Any Restrictions?:: See Comment Comment: no ER > 0 Degrees AROM FF/AB Consult to Patient Service Coordinator [CONS] Routine Comment: Reason for Consult:: Discharge Planning Needs Attending Physician on discharge: Erick Donnelly MD Date of Discharge: 05/04/22 DS: Diagnosis Discharge Diagnosis (1) Hypersensitivity reaction: Status: Acute Problem details: Facial, neck, trunk flushing after receiving cefazolin intravenously. (2) Status post replacement of right shoulder joint: Status: Acute Problem details: Per [facility] Felix, orthopedic surgery: Plan for discharge is 05/03/2022 to home if they meet discharge criteria. Patient will wear the sling for 6 weeks post surgery. She can take it off for comfort and for exercises. Activity: no external rotation of the left shoulder past 0? x 6 weeks. Forward flexion and abduction of the left shoulder is allowed as tolerated. They will work on range of motion of the elbow, wrist, fingers once the block has wore off on the operative extremity. Patient will begin occupational therapy for the operative shoulder next week. For discharge, oxycodone and Tylenol for pain. The patient is tolerating these well. Do not drive while on narcotic pain medication. Drive only when safe to do so, when they have normal use/function of the upper extremity. Patient will minimize and discontinue the narcotic as soon as possible. Remove dressing in 1 week. Dressing is waterproof. May shower. Surgical glue covers the wound. Do not scrub the wound. Expect swelling and bruising about the shoulder and upper extremity. Use of ice/active ice is without restriction. Patient will notify Orthopedics with any questions or concerns. Return to Orthopedic clinic next week for a wound check Return to clinic in [address] Donnelly. (3) Status post reverse total arthroplasty of right shoulder: Status: Acute (4) Hypertension: Status: Acute (5) Gastro-esophageal reflux disease without esophagitis: Status: Acute DS: Summary Hospital Course Hospital Course: 76-year-old female admitted to the hospital for right total shoulder arthroplasty. Procedures performed by Dr. Donnelly without complications. Postoperatively she did well. Her block is still in effect. Pain is well controlled. She has no other concerns today. Patient originally was going to be discharged on 05/03/2022. However shortly before discharge she had a deep facial, neck, trunk flushing episode after she received cefazolin IV. We treated her with diphenhydramine and famotidine orally. We then monitored her overnight. Her flushing condition resolved by the time of discharge. We added cefazolin to her list of allergies. Status at Discharge Functional status at discharge: independent ambulation Time Spent with Patient Time attestation: Total time spent providing and/or coordinating discharge services: Time spent: Less than 30 minutes Exam Narrative: Exam Narrative: Facial flushing, neck and trunk flushing entirely resolved. Right upper extremity in a sling. Moving her fingers. No cyanosis of fingers. Palpable radial artery pulses bilaterally. Capillary refill less than 3 seconds. Lungs clear to auscultation. Heart tones with regular rhythm. Abdomen with active bowel sounds. Independent transfer, station, and gait. Const: Vital Signs, click to edit/add: Vital Signs - 24 hr 05/03/22 16:00 05/03/22 19:45 05/03/22 23:00 Temperature 98.1 F Pulse Rate [Left P ulse Oximeter] 78 86 Respiratory Rate 20 20 Blood Pressure [Le ft Arm] 146/75 H Pulse Oximetry 91 95 05/04/22 03:15 05/04/22 07:00 05/04/22 11:00 Temperature 97.2 F L 97.8 F 97.8 F Pulse Rate [Left P ulse Oximeter] 70 70 70 Respiratory Rate 20 20 20 Blood Pressure [Le ft Arm] 146/87 H 158/82 H 158/82 H Pulse Oximetry 94 98 98 Discharge Plan Discharge Disposition: Home, Self-Care Date of Admission: 05/03/22 18:21 Attending Provider on Discharge: Donte Olivia Primary Care Provider: Evelia Payne Condition: Stable Anticipated Discharge Date/Time: 05/04/22 11:55 Discharge Medications: New acetaminophen 500 mg Tablet 500 - 1,000 mg PO Q6H Qty: 100 0RF oxycodone 5 mg Tablet 2.5 - 5 mg PO Q4-6H PRN (Reason: Pain) Qty: 42 0RF sennosides [Senna Lax] 8.6 mg Tablet 2 tab PO BID PRN (Reason: prn) Qty: 100 0RF Continued calcium carbonate-vitamin D3 500 mg-3.125 mcg (125 unit) tablet 1 tab PO DAILY 0RF ibuprofen 200 mg tablet 400 mg PO Q4-6H PRN0RF tramadol 50 mg tablet 50 mg PO Q6H PRN0RF alendronate 70 mg tablet 70 mg PO QWEEK 0RF Label Comments: pt takes on Mondays rosuvastatin 10 mg tablet 10 mg PO HS 0RF metoprolol succinate 25 mg tablet extended release 24 hr 25 mg PO DAILY 0RF famotidine 20 mg tablet 20 mg PO DAILY 0RF trazodone 50 mg tablet 50 mg PO HS 0RF sennosides-docusate sodium [Senna-S] 8.6-50 mg tablet 1 tab-cap PO HS 0RF Discharge Orders: Discharge Order (Routine); Ordered 05/04/22 Ordered By: Donte Olivia Patient Education: Acetaminophen (By mouth), Oxycodone, Rapid Release (By mouth), Senna (By mouth), Joint Replacement Surgery (DC) Activity Restrictions/Additional Instructions: leave dressing on. Dressing is waterproof. May shower. Surgical glue covers the wound. Notify Orthopedics with any questions or concerns. Activity Level: Activity as Tolerated Activity Detail: wear sling for 6 weeks post surgery. Active range of motion of the right elbow, wrist, fingers daily. Forward flexion and abduction Of right shoulder as tolerates. No external rotation of Right shoulder greater than 0?. Discharge Diet: Regular Follow Up Appointments: Evelia Payne MD [Primary Care Provider] - Erick Donnlely MD [Staff Physician] - 05/07/22 10:00 am (with Darlene TURPIN) Forms: Work/Release Restrictions Discharge Comment: Allergy: Cefazolin, face, neck, chest flush
== END 2022-05-04 12:00 | disposition home or self-care (01) | DRG 483 ==
LOC: OR 18:27 → MEDSURG 18:27
PROVIDERS: Admitting Provider Internal Medicine; PCP Internal Medicine; Visit Provider Orthopaedic Surgery
PROC: 0RRJ0JZ Replacement of Right Shoulder Joint with Synthetic Substitute, Open Approach (ICD-10-PCS; CPT 23472; principal; 2022-05-02 11:00)
DX: M19.011 Primary osteoarthritis, right shoulder (principal); I10 Essential (primary) hypertension; K21.9 Gastro-esophageal reflux disease without esophagitis; L27.0 Generalized skin eruption due to drugs and medicaments taken internally; T36.1X5A Adverse effect of cephalosporins and other beta-lactam antibiotics, initial encounter
CPT/HCPCS: 01638; 64415; 71045; 73030; 76942; 97110; 97161; 97165; 97535; 99100; A9270; C1776; J0330; J0690; J1100; J1170; J2250; J2370; J2704; J2710; J2795; J3010; J7120; L3670